=== PATIENT | female | born 1965 ===

== ENCOUNTER 2022-10-13 11:19 | Emergency (ER) | payer SELFPAY ==
--- NOTE | ~2022-10-13 | XR_ITS ---
Clinical Indication: Chest pain PA and lateral views of the chest: Comparison: None Findings: The lungs are clear, without evidence of focal consolidation or pleural effusion. Cardiome diastinal silhouette is within normal limits. Bones and soft tissues are unremarkable. Impression: Normal chest. Reviewed, dictated and finalized at location . Impression: Normal chest.
--- NOTE | ~2022-10-13 | US_ITS ---
EXAMINATION: US abdomen limited DATE: 10/13/2022 14:29 INDICATION: Right upper quadrant pain TECHNIQUE: Multiple grayscale and Doppler ultrasound images of the abdomen were obtained. COMPARISON: CT from today FINDINGS: Bowel gas obscures visualization of the pancreas. The visualized portions of the pancreas a re unremarkable. The liver demonstrates increased echogenicity, heterogenous echotexture, and decreas ed through transmission. No surface nodularity. Normal hepatopetal flow in the main portal vein. The gallbladder is normal with no abnormal wall thickening, pericholecystic fluid or stones. The normal c ommon bile duct measures 5 mm. There was no sonographic Rubin sign. IMPRESSION: 1. Diffuse hepatic steatosis. Reviewed, dictated and finalized at location B.
--- NOTE | ~2022-10-13 | CT_ITS ---
EXAMINATION: CT abdomen pelvis w con INDICATION: Right sided abdominal pain TECHNIQUE: Computed tomographic images of the abdomen and pelvis were obtained after the administrati on of 100 cc of Omnipaque 350 intravenous contrast. The dose-length product (DLP) was 1202.74 mGy-cm. Automated exposure control and iterative reconstruction technique were employed. COMPARISON: 08/24/2011 FINDINGS: The lung bases are clear. The heart size is normal. There is lipomatous hypertrophy of the interatrial septum. The liver is diffusely low in attenuation when compared with the spleen, consiste nt with hepatic steatosis. The spleen, pancreas, gallbladder, and adrenal glands are normal. The kidn eys are unremarkable. No pathologically enlarged abdominal or pelvic lymph nodes are identified. No f ree intraperitoneal gas or evidence of bowel obstruction. There is calcified atherosclerosis of the a kevyn and many of the other arteries. There is mild lumbar spondylosis. IMPRESSION: 1. No CT correlate for the patient's symptoms. 2. Diffuse hepatic steatosis. Reviewed, dictated and finalized at location B.
[2022-10-13 11:24] VITALS: BP 145/85; PULSE 88; RESP 19; TEMP 36.4; O2SAT 98
[2022-10-13 11:43] LABS: Basophils Absolute Auto 0.1 K/mm3 (0.0-0.1); Basophils Percent Auto 0.7 % (0.2-1.2); Eosinophils Absolute Auto 0.3 K/mm3 (0-0.3); Eosinophils Percent Auto 2.9 % (0-4.4); Hemoglobin 15.1 g/dL (12.0-15.0); Immature Granulocyte Absolute 0.06 K/mm3 (0.00-0.031); Immature Granulocyte Percent A 0.6 % (0-0.5); Lymphocytes Percent Auto 25.9 % (18.3-44.2); Mean Corpuscular HGB Conc 32.1 g/dl (32-36); Mean Corpuscular Hemoglobin 31.8 pg (26-34); Mean Corpuscular Volume 98.9 fl (80-100); Mean Platelet Volume 9.5 fl (7.4-10.4); Monocytes Absolute Auto 0.5 K/mm3 (0.1-0.6); Monocytes Percent Auto 5.2 % (2.6-8.5); Neutrophils Absolute Auto 6.5 K/mm3 (1.3-6.7); Neutrophils Percent Auto 64.7 % (45.5-73.1); Platelet Count Result 257 k/mm3 (150-375); Red Blood Count 4.75 M/mm3 (4.2-5.4); Red Cell Distribution Width 12.5 % (11.5-14.5); White Blood Count 10.1 K/mm3 (4.5-10.0)
[2022-10-13 11:56] LABS: Alanine Aminotransferase 42 U/L (6-35); Albumin Level 3.9 g/dL (3.5-5.1); Alkaline Phosphatase 119 U/L (38-126); Anion Gap 5 mmol/L (8-16); Aspartate Amino Transferase 73 U/L (14-36); Bilirubin,Total 0.5 mg/dL (0.2-1.3); Blood Urea Nitrogen 5 mg/dL (7-17); Calcium 9.2 mg/dL (8.4-10.2); Carbon Dioxide 29 mmol/L (22-30); Chloride 105 mmol/L (98-107); Estimated CRCL calculation 98 ml/min; Estimated Glomerular Filt Rate > 60; Glucose 122 mg/dL (65-110); Lipase 229 U/L (23-300); Potassium 3.9 mmol/L (3.4-5.0); Sodium 139 mmol/L (137-145)
[2022-10-13 12:31] LABS: Appearance Urine Turbid (Clear); Bacteria Urine 4+ /hpf; Bilirubin Urine Negative (Negative); Blood Urine Negative (Negative); Color Urine Dark Yellow (Yellow); Glucose Urine UA Negative (Negative); Hyaline Casts Urine Present /lpf; Ketones Urine Trace mg/dL (Negative); Leukocyte Esterase Ur 3+ LEU/UL (Negative); Need Manual Microscopic Reviewed; Nitrate Urine Negative (Negative); Protein Urine 1+ mg/dL (Negative); Specific Grav Ur 1.024 (1.001-1.035); Squamous Epithelial Cell Urine Many /hpf (Few); WBC Urine 51-100 /hpf; pH Urine 5.5 (5.0-9.0)
[2022-10-13 12:32] LABS: Add Urine Microscopic? YES
--- NOTE | 2022-10-13 12:33 | ED.ABDPAIN ---
HPI - Abdominal Pain General Chief Complaint: Abdominal Pain Stated Complaint: right sided pain x5 days Time Seen by Provider: 10/13/22 12:02 History of Present Illness HPI narrative: Patient is a 57-year-old female presenting with abdominal pain. Patient states that for the last 5 days she has had right upper quadrant pain. States that it has been radiating into her right flank. It is worse with coughing and sneezing. States that she was taking ibuprofen and Tylenol which helped for a couple of days. States that she has had a decreased appetite and some nausea but no vomiting. Denies changes in bowel movements. Denies chest pain or shortness of breath. No numbness or weakness. No fevers. Denies prior abdominal surgeries. Denies dysuria or hematuria. Denies leg swelling. Related Data Home Medications Medication Instructions Recorded Confirmed No Home Medications 10/13/22 10/13/22 Allergies Allergy/AdvReac Type Severity Reaction Status Date / Time No Known Allergies Allergy Verified 10/13/22 12:07 Review of Systems Review of Systems: All systems reviewed & are unremarkable except as noted in HPI and below Exam Narrative: GENERAL: Well-appearing, well-nourished, and in no acute distress. HEAD: Normocephalic, atraumatic. EYES: PERRLA and EOMI. ENT: Nares clear, no rhinorrhea or epistaxis. Mucous membranes moist. NECK: Supple. CHEST: Clear to auscultation. No respiratory distress. HEART: Regular rate and rhythm. ABDOMEN: Soft, RUQ/R flank tenderness, no guarding or rebound EXTREMITIES: Normal range of motion. No edema. SKIN: Warm, dry, no rash. NEURO: No focal deficits. Alert and oriented x3. PSYCH: Normal mood and affect. Course Vital Signs Vital signs: Vital Signs Temperature 97.5 F L 10/13/22 11:24 Pulse Rate 88 10/13/22 11:24 Respiratory Rate 19 10/13/22 11:24 Blood Pressure 145/85 H 10/13/22 11:24 Pulse Oximetry 98 10/13/22 11:24 Oxygen Delivery Room Air 10/13/22 11:24 Temperature 97.5 F L 10/13/22 11:24 Pulse Rate 88 10/13/22 11:24 Respiratory Rate 19 10/13/22 11:24 Blood Pressure 145/85 H 10/13/22 11:24 Pulse Oximetry 98 10/13/22 11:24 Oxygen Delivery Room Air 10/13/22 11:24 MDM - Abdominal Pain MDM Narrative Medical decision making narrative: Patient is a 57-year-old female presenting with several days of right upper quadrant pain and nausea. Patient is hypertensive, though his vitals are within normal limits. Exam is remarkable for the above. Plan for blood work, CT abdomen pelvis, fluids. Patient is declining pain medications at this time. CT abdomen pelvis shows hepatic steatosis but no acute abnormalities. Right upper quadrant ultrasound was obtained which shows normal gallbladder. Patient continues to have pain in her right upper quadrant/right lower chest. Low suspicion for PE but will add a D-dimer. Remainder of her labs are unremarkable. D-dimer is within normal limits. Patient received fluids and Toradol and states that her pain has now improved. Discussed the reassuring work-up. Advised Tylenol and ibuprofen for pain control. Also recommended Lidoderm patches as needed. Advise close PCP follow-up. Strict return precautions given. Patient voiced understanding and is agreeable with plan. Discharged in stable condition. Differential Diagnosis Differential diagnosis: Likely abdominal pain, constipation, diverticulitis, gastroenteritis, pancreatitis and small bowel obstruction Medical Records Attestation: I reviewed the patient's medical records. Lab Data Attestation: I reviewed the patient's lab results. 10/13/22 11:36 10/13/22 11:36 Labs: Lab Results 10/13/22 10/13/22 10/13/22 Range/Units 11:36 12:16 15:02 WBC 10.1 H (4.5-10.0) K/mm3 RBC 4.75 (4.2-5.4) M/mm3 Hgb 15.1 H (12.0-15.0) g/dL Hct 47.0 (37.0-47.0) % MCV 98.9 (80-100) fl MCH 31.8 (26-34) pg
[2022-10-13] MEDS: SODIUM CHLORIDE 0.9% IV 1,000 ML 999 ML IV CONT (12:46)
[2022-10-13] MEDS: KETOROLAC 15 MG/ML VIAL (*BKC) IV PUSH (14:57)
[2022-10-13 15:31] LABS: D Dimer 0.39 ug/mL (<0.48)
== END 2022-10-13 16:36 | disposition home or self-care (01) ==
PROVIDERS: Emergency Medicine; Emergency Provider Emergency Medicine
DX: R10.11 Right upper quadrant pain (principal)
CPT/HCPCS: 36415; 71046; 74177; 76705; 80053; 81001; 83690; 85025; 85380; 87086; 96361; 96374; 99284; J1885; J7030; Q9967